=== PATIENT | female | born 1950 | race Caucasian/White ===

== ENCOUNTER → 2019-10-28 11:11 | Outpatient (BNVA) | payer MEDICARE, OTHER, SELFPAY | PROVIDERS: Family Provider Family Medicine; PCP Family Medicine; Visit Provider Nurse Practitioner | DX: S86.911A Strain of unspecified muscle(s) and tendon(s) at lower leg level, right leg, initial encounter (principal); X58.XXXA Exposure to other specified factors, initial encounter | CPT/HCPCS: 73560 ==

== ENCOUNTER 2019-11-12 09:19 | Outpatient (CLI) | payer MEDICARE, OTHER, SELFPAY ==
--- NOTE | 2019-11-12 09:25 | MR_ITS ---
WS: [id number] MRI RIGHT KNEE NONCONTRAST TECHNIQUE: Axial PD, coronal PD fat sat, coronal PD, sagittal PD, and sagittal PD fat-sat images obta ined. CLINICAL INFORMATION: RIGHT KNEE PAIN COMPARISON: None. FINDINGS: Anterior cruciate ligament is normal. Normal PCL. Distal quadriceps and patella tendons are intact. M oderate suprapatellar effusion. Hypertrophic patella. Medial and lateral collateral ligaments are int act. Small amount of edema along the lateral collateral ligament consistent with grade one injury. Moderate chondromalacia patella. No subchondral edema. Thinning of the medial and lateral meniscus. B lunting of the posterior horn lateral meniscus with complex tear extending to the articular surface a nd meniscal root. Normal popliteal fossa. MR/MR knee RT wo con* [id number] IMPRESSION: 1. Anterior and posterior cruciate ligaments are intact. 2. Blunting of the posterior horn lateral meniscus with complex tear extending to the articular surface. This extends to the meniscal root with blunting. 3. Small amount of edema involving the lateral collateral ligament consistent with grade one injury. 4. Moderate chondromalacia patella. No subchondral edema. 5. Small suprapatellar effusion. 6. Mild to moderate chondromalacia involving the medial and lateral joint comp artments.
== END 2019-11-12 09:20 | disposition home or self-care (01) ==
LOC: RADWPI 09:23
PROVIDERS: Family Provider Family Medicine; PCP Family Medicine; Visit Provider Family Medicine
DX: S83.281A Other tear of lateral meniscus, current injury, right knee, initial encounter (principal); X58.XXXA Exposure to other specified factors, initial encounter; R60.9 Edema, unspecified; M22.41 Chondromalacia patellae, right knee; M25.461 Effusion, right knee
CPT/HCPCS: 73721

== ENCOUNTER 2019-11-14 19:29 | Emergency (ER) | payer MEDICARE, OTHER, SELFPAY ==
[2019-11-14 19:34] VITALS: BP 171/78; PULSE 78; RESP 14; TEMP 36.5; O2SAT 97; BMI 37.4
--- NOTE | 2019-11-14 19:41 | W.ED.EXTPRO ---
HPI - Extremity Problem General: Chief complaint: Extremity Problem,Nontraumatic Stated complaint: finger discoloration Time Seen by Provider: 11/14/19 19:41 Source: patient Mode of arrival: ambulatory Limitations: no limitations History of Present Illness: HPI Narrative: 69-year-old female comes in today for concerns of discoloration of her left thumb pad. Patient reports this afternoon she noticed some bluish discoloration to her thumb pad. Patient attempted washing it several times but noted no change in color. Patient appears well. Patient denies any significant pain or discomfort to the thumb pad. Patient has a history of diabetes, coronary artery disease, and hypercholesteremia. Patient does take metoprolol for her blood pressure and heart disease. Patient is also on medications for her diabetes. Patient denies any pain or injury. Review of Systems General: Reports: 10 or more systems reviewed and unremarkable except in HPI and below Skin/Breast: Reports: changes in skin color PFS ED PFSH: Social History Smoking and tobacco status: never smoked Physical Exam Const: COMMON NORMALS: no acute distress and patient oriented x3 GENERAL APPEARANCE: cooperative HENMT: COMMON NORMALS: normocephalic and Normal external nose present HEAD & SCALP: normal to inspection and normocephalic NOSE: Normal external nose present MOUTH: Normal oral and palatal mucosa present THROAT: posterior oropharynx normal Eye: GENERAL EYE: appearance normal, both eyes and all related structures Neck/C-Spine: COMMON NORMALS: full ROM Lymph: LYMPHATIC: no lymphadenopathy noted Chest: COMMONS NORMALS: normal inspection of the chest Resp: COMMON NORMALS: normal respiratory effort EFFORT & INSPECTION: Yes able to speak in complete sentences Cardio: COMMON NORMALS: regular rate and regular rhythm RATE: regular rate RHYTHM: regular rhythm GI: COMMON NORMALS: non-tender Back/Pelvis: COMMON NORMALS: thoracic and lumbar spine normal to inspection Extremity: COMMON NORMALS: normal to inspection Neuro: COMMON NORMALS: patient oriented x3 and moves all extremities Psych: COMMON NORMALS: mental status grossly normal and cooperative Skin: NARRATIVE SKIN EXAM: Bluish discoloration to the thumb pad of the left hand. Normal range of motion of the finger is noted. No tenderness is noted on palpation. Capillary refill is intact to the finger. Course ED course: 2205, 69-year-old female ultrasound for arterial flow noted monophasic in the wrist and hand while triphasic all the way down to the area. Patient appears well. Patient appears no acute distress. Vital Signs: Vital signs: Vital Signs Temperature 97.7 F 11/14/19 19:34 Pulse Rate 78 11/14/19 19:34 Respiratory Rate 14 11/14/19 19:34 Blood Pressure 171/78 11/14/19 19:34 Pulse Oximetry 97 11/14/19 19:34 MDM - Extremity (Nontraumatic) MDM Narrative: Medical decision making narrative: Patient comes in with some discoloration to the left distal thumb. On exam patient has prompt capillary refill to the nail bed. Patient has good range of motion of the thumb. Minimal swelling and no pain. Differential diagnosis includes peripheral artery disease, ray nods phenomena, arterial occlusive disease. Reviewed exam with patient recommendations for further treatment and follow-up. Suspect the patient has peripheral artery disease with a small vascular partial occlusion. Ultrasound noted some triphasic to monophasic in the distal extremity. Discussed need for further treatment and evaluation cardiovascular for further intervention. Patient reports understanding of care plan and need for follow-up. Lab Data: Labs: Lab Results 11/14/19 11/14/19 11/14/19 Range/Units 20:16 20:16 20:16 WBC 8.5 (4.0-10.0) 10^3/ uL RBC 4.77 (4.1-5.3) 10^6/u L Hgb 13.3 (11.5-15.3) g/dL Hct 41.9 (37.0-47.0) % MCV 87.8 (81-99) fL MCH 27.9 L (28.0-34.0) pg MCHC 31.7 (30.0-36.0) g/dL RDW 14.0 (12.1-15.1) % Plt Count 233 (130-400) 10^3/c mm MPV 10.7 H (7.4-10.4) fL Neut % (Auto) 58.8 % Lymph % (Auto) 32.3 % [place] % (Auto) 6.4 % Eos % (Auto) 1.6 % Baso % (Auto) 0.7 % Neut # (Auto) 4.99 (1.8-7.7) 10^3/u L Lymph # (Auto) 2.7 (0.8-4.8) 10^3/u L [place] # (Auto) 0.5 (0.2-0.9) 10^3/u L Eos # (Auto) 0.1 (0.0-0.8) 10^3/u L Baso # (Auto) 0.1 (0.0-0.1) 10^3/u L Nucleated RBC % (a uto) 0 % Nucleated RBCs # 0.0 /100WBC PT 12.60 (10.5-13.3) SECO NDS INR 0.91 (0.8-1.2) APTT 26.5 (23.9-36.7) SECO NDS Sodium 136 (136-145) mmol/L Potassium 3.6 (3.5-5.1) mmol/L Chloride 95 L (98-107) mmol/L Carbon Dioxide 29 (22-29) mmol/L Anion Gap 15.6 (5-19) BUN 16 (8-23) mg/dL Creatinine 0.9 (0.5-0.9) mg/dL GFR Calculation 62.1 L (90-130) mL/min Glucose 180 H (65-115) mg/dL Calculated Osmolal ity 283 L (285-295) mOsm/k g Calcium 10.0 (8.5-10.5) mg/dL Total Bilirubin 0.3 (0.15-1.2) mg/dL AST 38 H (0-32) U/L ALT 30 (0-33) U/L Alkaline Phosphata se 76 (35-105) IU/L C-Reactive Protein 11.7 H (0.0-4.9) mg/L Total Protein 7.3 (6.6-8.7) g/dL Albumin 4.6 (3.5-5.2) g/dL Globulin 2.7 (1.3-4.6) g/dL Discharge Plan Discharge Patient Disposition: Home Clinical Impression: Peripheral artery disease Condition: Stable Prescriptions: New pentoxifylline 400 mg tablet extended release 400 mg PO BID Qty: 60 RF: 0 No Action metformin 1,000 mg tablet 1,000 mg PO BID RF: 0 Levemir FlexTouch U-100 Insuln 100 unit/mL (3 mL) insulin pen 42 unit SUBCUT BID RF: 0 spironolactone 50 mg tablet 50 mg PO DAILY RF: 0 atorvastatin 20 mg tablet 20 mg PO DAILY RF: 0 aspirin 325 mg tablet 325 mg PO DAILY RF: 0 duloxetine 60 mg capsule,delayed release(DR/EC) 60 mg PO DAILY RF: 0 metoprolol tartrate 25 mg tablet 12.5 mg PO BID RF: 0 potassium chloride 20 mEq tablet extended release 20 meq PO DAILY RF: 0 Referrals: Dayana Herrera MD [Primary Care Provider] - Coding Level of Care Code ED Obstetrics And Gynecology Professor for Chg Fwd Exam Comprehensive
[2019-11-14 20:23] LABS: Basophils # 0.1 10^3/uL (0.0-0.1); Basophils % 0.7 %; Eosinophils # 0.1 10^3/uL (0.0-0.8); Eosinophils % 1.6 %; Hematocrit 41.9 % (37.0-47.0); Hemoglobin 13.3 g/dL (11.5-15.3); Lymphocytes # 2.7 10^3/uL (0.8-4.8); Lymphocytes % 32.3 %; Mean Corpuscular HGB Conc 31.7 g/dL (30.0-36.0); Mean Corpuscular Hemoglobin 27.9 pg (28.0-34.0); Mean Corpuscular Volume 87.8 fL (81-99); Mean Platelet Volume 10.7 fL (7.4-10.4); Monocytes # 0.5 10^3/uL (0.2-0.9); Monocytes % 6.4 %; Neutrophils # 4.99 10^3/uL (1.8-7.7); Neutrophils % 58.8 %; Nucleated Red Blood Cells % 0 %; Platelet Count 233 10^3/cmm (130-400); Red Blood Count 4.77 10^6/uL (4.1-5.3); White Blood Count 8.5 10^3/uL (4.0-10.0)
[2019-11-14 20:41] LABS: Alanine Aminotransferase 30 U/L (0-33); Albumin Level 4.6 g/dL (3.5-5.2); Alkaline Phosphatase 76 IU/L (35-105); Anion Gap 15.6 (5-19); Aspartate Amino Transferase 38 U/L (0-32); Blood Urea Nitrogen 16 mg/dL (8-23); Carbon Dioxide 29 mmol/L (22-29); Chloride 95 mmol/L (98-107); Globulin 2.7 g/dL (1.3-4.6); Glomerular Filtration Rate 62.1 mL/min (90-130); Glucose 180 mg/dL (65-115); Osmolality Calculated 283 mOsm/kg (285-295); Potassium 3.6 mmol/L (3.5-5.1); Sodium 136 mmol/L (136-145); Total Bilirubin 0.3 mg/dL (0.15-1.2); Total Protein 7.3 g/dL (6.6-8.7)
--- NOTE | 2019-11-14 20:43 | USR_ITS ---
PROCEDURE INFORMATION: Exam: US Duplex Left Upper Extremity Arteries Exam date and time: 11/14/2019 9:13 PM Age: 69 years old Clinical indication: Other: Discoloration of the left thumb; Additional info: Discoloration finger. In the location of the lateral left wrist there is a collection of fluid. This area does not have any blood flow to it. Patient states she has had it drained before. TECHNIQUE: Imaging protocol: Left Real-time ultrasound scan of the arteries of the left upper extremity with 2-D mullins scale, color Doppler flow and spectral waveform analysis. COMPARISON: No relevant prior studies available. FINDINGS: Left subclavian artery: No occlusion or significant stenosis. Normal waveform. Left axillary artery: No occlusion or significant stenosis. Normal waveform. Left brachial artery: No occlusion or significant stenosis. Normal waveform. Left radial artery: No occlusion or significant stenosis. Normal waveform. Left ulnar artery: No occlusion or significant stenosis. Normal waveform. Soft tissues: There is a 1.6 x 1.0 by 1.3 cm sized cyst along the lateral aspect of the left wrist corresponding with the clinically palpable abnormality. US/[place] [id number] IMPRESSION: Small cyst. Normal arterial velocities and waveforms
[2019-11-14 20:46] LABS: INR 0.91 (0.8-1.2)
[2019-11-14 20:47] LABS: Partial Thromboplastin Time 26.5 SECONDS (23.9-36.7)
[2019-11-14 21:14] LABS: C Reactive Protein 11.7 mg/L (0.0-4.9)
[2019-11-14 23:03] VITALS: BP 125/74; PULSE 78; RESP 18; O2SAT 98
--- NOTE | 2019-11-17 09:51 | PC.SOCIAL ---
spoke with Kari at [facility] regarding referral for cardiology due to PVD. She will review and follow up with patient.
--- NOTE | 2019-11-26 10:25 | DCPLANNER ---
Patient has a follow up appointment scheduled for Sunday, December 01, 2019 at 1:[address] Ruiz at [facility]. Clinic will call patient with appointment information.
--- NOTE | 2019-12-04 14:44 | DCPLANNER ---
Patient did attend appointment scheduled for 12.01.19 with [facility].
== END 2019-11-14 23:05 | disposition home or self-care (01) ==
PROVIDERS: Emergency Provider Nurse Practitioner Family; PCP Family Medicine
DX: I73.9 Peripheral vascular disease, unspecified (principal); Z79.82 Long term (current) use of aspirin; Z79.4 Long term (current) use of insulin
CPT/HCPCS: 12345; 36415; 80053; 85025; 85610; 85730; 86140; 93931; 99281; 99283

== ENCOUNTER → 2021-11-28 15:21 | Outpatient (BNVA) | payer MEDICARE, SELFPAY | PROVIDERS: PCP Family Medicine; Visit Provider Internal Medicine Cardiovascular Disease | DX: R07.9 Chest pain, unspecified (principal); I73.9 Peripheral vascular disease, unspecified; I10 Essential (primary) hypertension; Z86.73 Personal history of transient ischemic attack (TIA), and cerebral infarction without residual deficits; I25.10 Atherosclerotic heart disease of native coronary artery without angina pectoris; R00.1 Bradycardia, unspecified; I25.2 Old myocardial infarction | CPT/HCPCS: 93005; 99214 ==

== ENCOUNTER 2022-01-11 08:15 | Outpatient (CLI) | payer MEDICARE, SELFPAY ==
--- NOTE | 2022-01-11 | ECG_ITS ---
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 Interpretive Statements NAME OF STUDY: LEXISCAN SESTAMIBI STRESS TEST INDICATION: Chest Pain PROCEDURE: At the baseline, the blood pressure was 131/64 mmHg, oxygen saturation 92% with a heart rate of 65 bpm. The electrocardiogram showed normal sinus rhythm, normal axis. Poor anterior R wave progression. Nonspecific T wave inversion in 1 aVL lead II, aVF and V6. The Lexiscan was infused over a period of 20 seconds. A total of 0.4 milligrams of Lexiscan was infused. The stress phase was continued for a total of 5 minutes. Heart rate at the end of the stress phase was 70 bpm, oxygen saturation 95% with a blood pressure of 143/62 mmHg. The EKG at the peak infusion revealed sinus rhythm with no significant ST-T wave changes. The study was terminated due to protocol completion. Sestamibi was injected 20 seconds after the Lexiscan infusion. Blood pressure at the end of the recovery phase was 137/64 mmHg, oxygen saturation 91% with a heart rate of 70 beats per minute. CONCLUSION: 1. No significant EKG changes with the LexiScan infusion. 2. No LexiScan induced chest pain or cardiac arrhythmia. 3. Normal blood pressure and heart rate response. 4. Sestamibi/sestamibi perfusion scan pending; see separate report. Electronically Signed On 01-12-2022 12:52:46 CDT by Yue Ruiz M.D. [id number]
[2022-01-11 08:26] VITALS: BMI 37.4
--- NOTE | 2022-01-11 08:41 | NMCV_ITS ---
NM clyde perf SPECT r/s* [id number] Alejandra Mckinney Age: 71 Gender: F : 1950 Exam Date: 01/11/2022 09:00 Ordering Phys: Yue Ruiz MD ([email or web address]) Technologist: RESHMA Yadav Exam Location: [facility] Indications: CHEST PAIN STRESS TEST Please see separate stress test report in [facility] for full findings IMAGE PROTOCOL Rest/Stress 1 Lexiscan Day Radiopharmaceutical Dose (mCi) Administration Site Administered by Rest: Tc-99m 10.9 IV RESHMA Jacobo Sestamibi Stress:Tc-99m 32.8 IV RESHMA Jacobo Sestamibi Rest: 11-Jan-2022 60 Discovery 630 Stress: 11-Jan-2022 30 Discovery 630 0.4mg Lexiscan. Images obtained in supine and prone position. SPECT RESULTS Technical Quality: Excellent Raw Data Analysis: Normal Image Corrections: No attenuation or motion correction applied Summed Stress Score: 1 Summed Rest Score: 1 Summed Difference Score: 1 PERFUSION FINDINGS Small sized perfusion abnormality of mild severity of mid inferior wall on rest images with improved tracer uptake on stress images. This is suggestive of attenuation artifact. FUNCTIONAL RESULTS (calculated via Gated SPECT) Stress Image LV EF (%): 77 Stress EDV (mL):83 TID: 1.02 Stress ESV (mL):19 FUNCTIONAL FINDINGS: The left ventricle is normal in size. Transient Ischemia Dilatation of 1. There is normal left ventricular systolic function. The left ventricular ejection fraction is normal with a value of 77%. There is normal left ventricular wall thickening. Normal end-diastolic and end-systolic volumes. IMPRESSIONS 1. Myocardial perfusion imaging is normal. 2. Overall left ventricular systolic function is normal without regional wall motion abnormalities, LVEF=77%. 3. No EKG changes with Lexiscan infusion. Refer to separate report for details. Yue Ruiz MD (Electronically Signed) Final Date: 13 January 2022 12:36 S
[2022-01-11] MEDS: regadenoson 0.4 Mg/5 ml Syringe IVP (10:02)
[2022-01-11 10:32] VITALS: BP 137/64; PULSE 70
== END 2022-01-11 08:16 | disposition home or self-care (01) ==
PROVIDERS: PCP Family Medicine; Visit Provider Internal Medicine Cardiovascular Disease
DX: R07.9 Chest pain, unspecified (principal)
CPT/HCPCS: 78452; 93017; A9500; J2785

== ENCOUNTER 2023-10-18 13:16 | Emergency (ER) | payer MEDICARE, SELFPAY ==
--- NOTE | 2023-10-18 13:23 | ECG_ITS ---
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 Measurements Intervals [place] Rate: 60 P: 29 GA: 170 QRS: 56 QRSD: 91 T: 55 QT: 407 QTc: 410 Interpretive Statements SINUS RHYTHM NONSPECIFIC ST & T-WAVE ABNORMALITY INTERPRETATION BASED ON A DEFAULT AGE OF 40 YEARS Compared to ECG 04/18/2017 10:08:39 Sinus bradycardia no longer present T-wave abnormality still present Electronically Signed On 10-19-2023 20:35:42 CDT by Comfort Rivero M.D. [id number]
[2023-10-18 13:28] VITALS: BP 135/74; PULSE 60; RESP 16; TEMP 36.8; O2SAT 96; BMI 35.5
--- NOTE | 2023-10-18 13:29 | XR_ITS ---
WS: [id number] Exam: XR chest 1V portable [id number] Date/Time of Exam: 10/18/2023 1:38 PM Reason For Exam: Shortness of breath Comparison 04/18/2017. Lungs are clear and fully expanded. Normal heart size. The mediastinum is normal in contour. Bony str uctures are intact. Mild DJD of both shoulders. XR/XR chest 1V portable [id number] IMPRESSION: 1. No acute cardiopulmonary finding.
[2023-10-18 13:49] LABS: Basophils # 0.1 10^3/uL (0.0-0.1); Basophils % 0.9 %; Eosinophils # 0.2 10^3/uL (0.0-0.8); Eosinophils % 2.2 %; Hematocrit 42.4 % (36-47); Lymphocytes # 2.8 10^3/uL (0.8-4.8); Lymphocytes % 31.2 %; Mean Corpuscular HGB Conc 31.6 g/dL (30-55); Mean Corpuscular Hemoglobin 27.1 pg (27-33); Mean Corpuscular Volume 85.7 fl (85-98); Mean Platelet Volume 10.7 fL (7.4-10.4); Monocytes # 0.6 10^3/uL (0.2-0.9); Neutrophils # 5.21 10^3/uL (1.8-7.7); Neutrophils % 58.5 %; Nucleated Red Blood Cells % 0 %; Platelet Count 256 10^3/cmm (157-399); Red Blood Count 4.95 10^6/uL (3.85-5.65); Red Cell Distribution Width 14.8 % (12.1-15.1); White Blood Count 8.91 10^3/uL (3.29-11.43)
[2023-10-18 14:05] LABS: Lactic Sepsis W/Reflex 3.4 mmol/L (0.5-2.2)
[2023-10-18 14:07] LABS: Troponin(5th) Baseline 12 ng/L (0-10)
[2023-10-18 14:17] LABS: Alanine Aminotransferase 20 U/L (0-33); Alkaline Phosphatase 83 U/L (35-105); Anion Gap 19.5 (5-19); Aspartate Amino Transferase 22 U/L (0-32); Blood Urea Nitrogen 16 mg/dL (8-23); C Reactive Protein 8.9 mg/L (0.0-4.9); Calcium 9.4 mg/dL (8.5-10.5); Carbon Dioxide 28 mmol/L (22-29); Chloride 95 mmol/L (98-107); Globulin 3.5 g/dL (1.3-4.6); Glucose 186 mg/dL (65-115); NT Pro B Type Natriuretic Pept 65 pg/mL (0-125); Osmolality Calculated 294 mOsm/kg (285-295); Potassium 3.5 mmol/L (3.5-5.1); Sodium 139 mmol/L (136-145); Total Bilirubin 0.4 mg/dL (0.15-1.2); Total Protein 7.5 g/dL (6.6-8.7)
[2023-10-18 14:22] LABS: Urine Color Yellow (Yellow)
[2023-10-18 14:23] LABS: Bacteria Urine 1+ /hpf; Bilirubin Urine Neg (Negative); Blood Urine Neg (Negative); Glucose Urine UA Norm (Normal); Ketones Urine Negative (Negative); Leukocyte Esterase Urine 1+ (Negative); Nitrate Urine Negative (Negative); Protein Urine Neg (Negative); Squamous Epithelial Cell Urine 0-4 /hpf (0-5); Urine Appearance Clear (CLEAR); Urobilinogen Urine Norm (Negative); pH Urine 5 (5-7)
[2023-10-18 14:24] LABS: Add Urine Culture? No
--- NOTE | 2023-10-18 14:26 | ED_ITS ---
HPI - Arrhythmia/Palpitations 2 General: Chief Complaint: Arrhythmia/Palpitations Stated Complaint: cardo referral, heart palpitations, SOB Time Seen by Provider: 10/18/23 13:27 History of Present Illness: 73-year-old female with a history of str sacha, diabetes, hypertension and coronary artery disease who presents to the emergency room with chest pressure and flutters. She has been feeling short of breath with exertion. She called her proprietary trader who told her to come to the emergency room. Said some mild nausea generalized weakness. No fevers. No cough. Review of Systems 2 Narrative: Constitutional symptoms: Negative except as documented in HPI. Skin symptoms: Negative except as documented in HPI. Eye symptoms: Negative except as documented in HPI. ENMT symptoms: Negative except as documented in HPI. Respiratory symptoms: Negative except as documented in HPI. Cardiovascular symptoms: Negative except as documented in HPI. Gastrointestinal symptoms: Negative except as documented in HPI. Genitourinary symptoms: Negative except as documented in HPI. Musculoskeletal symptoms: Negative except as documented in HPI. Neurologic symptoms: Negative except as documented in HPI. Psychiatric symptoms: Negative except as documented in HPI. Endocrine symptoms: Negative except as documented in HPI. PFSH ED 2 PFSH: Medical History CAD (coronary artery disease) CVA (cerebral vascular accident) Diabetes HTN (hypertension) Surgical History S/P coronary artery stent placement Social History Smoking and tobacco/nicotine status: never used tobacco/nicotine Physical Exam 2 Narrative: EXAM NARRATIVE: General: Alert, no acute distress. Skin: Warm, dry. Head: Normocephalic, atraumatic. Neck: Supple, trachea midline. Eye: Extraocular movements are intact. Ears, nose, mouth and throat: mucosa moist. Cardiovascular: Regular, Normal peripheral perfusion. Respiratory: Lungs are clear to auscultation, respirations are non-labored, breath sounds are equal, Symmetrical chest wall expansion. Gastrointestinal: Soft, Nontender, Non distended Musculoskeletal: Normal ROM, no deformity. Neurological: Alert and oriented, No focal neurological deficit observed. Psychiatric: Cooperative, appropriate mood & affect. Course 2 Vital Signs: Vital signs: Vital Signs Temperature 98.3 F 10/18/23 13:28 Pulse Rate 65 10/18/23 15:13 Respiratory Rate 14 10/18/23 14:35 Blood Pressure 134/63 10/18/23 15:13 Pulse Oximetry 95 10/18/23 15:13 Oxygen Delivery Me thod Room Air 10/18/23 13:28 MDM - Arrhythmia/Palpitations Medical Decision Making Medical decision making: Differential diagnosis including but not limited to and based on the above HPI, review of systems and physical exam: for patient with palpitations: atrial fibrillation with rapid ventricular response. ventricular tachycardia. sinus tachycardia. PVCs. also concern for underlying issues causing tachycardia. Infection, electrolyte abnormalities and thyroid issues Orders placed to evaluate differential diagnosis based on the above differential, HPI and physical exam EKG: Time 1323. Rate 60. Normal sinus rhythm, No ST-T changes, no ectopy, normal IL & QRS intervals, This was reviewed and interpreted by myself the ER physician at 1325 Chest x-ray: No acute process. No infiltrate. No pneumothorax. This was reviewed and interpreted by myself the ER physician. Lab Review: Laboratory results were reviewed and interpreted by myself the emergency room physician. Lab work is fairly unremarkable. No leukocytosis. No anemia. No renal failure. Urine does have 5-10 whites and 1+ bacteria so symptoms could be caused by UTI I reviewed the patient's medical record. Reexamination: Patient says she feels quite a bit better. No tachycardia and no dysrhythmias while she is been here. No altered mental status. No focal motor deficits. No increased work of breathing. Assessment and plan: Weakness Urinary tract infection Palpitations ?IV Rocephin in the emergency room. - Discharged home - Discussed findings and plan with patient. Answered any questions. - All laboratory values were reviewed and interpreted personally by myself, the ER physician - All imaging was reviewed and interpreted personally by myself, the ER physician. - Evaluation and treatment of this problem were appropriate in the emergency setting Lab Data 10/18/23 13:41 10/18/23 13:41 Radiology Impressions Chest X-Ray 10/18/23 13:29 IMPRESSION: 1. No acute cardiopulmonary finding. Laboratory Results WBC 8.91 10^3/uL (3.29-11.43) 10/18/23 13:41 RBC 4.95 10^6/uL (3.85-5.65) 10/18/23 13:41 Hgb 13.40 g/dL (11.27-16.99) 10/18/23 13:41 Hct 42.4 % (36-47) 10/18/23 13:41 MCV 85.7 fl (85-98) 10/18/23 13:41 MCH 27.1 pg (27-33) 10/18/23 13:41 MCHC 31.6 g/dL (30-55) 10/18/23 13:41 RDW 14.8 % (12.1-15.1) 10/18/23 13:41 Plt Count 256 10^3/cmm (157-399) 10/18/23 13:41 MPV 10.7 fL (7.4-10.4) H 10/18/23 13:41 Neut % (Auto) 58.5 % 10/18/23 13:41 Lymph % (Auto) 31.2 % 10/18/23 13:41 [place] % (Auto) 7.0 % 10/18/23 13:41 Eos % (Auto) 2.2 % 10/18/23 13:41 Baso % (Auto) 0.9 % 10/18/23 13:41 Neut # (Auto) 5.21 10^3/uL (1.8-7.7) 10/18/23 13:41 Lymph # (Auto) 2.8 10^3/uL (0.8-4.8) 10/18/23 13:41 [place] # (Auto) 0.6 10^3/uL (0.2-0.9) 10/18/23 13:41 Eos # (Auto) 0.2 10^3/uL (0.0-0.8) 10/18/23 13:41 Baso # (Auto) 0.1 10^3/uL (0.0-0.1) 10/18/23 13:41 Nucleated RBC % (auto) 0 % 10/18/23 13:41 Nucleated RBCs # 0.0 /100WBC 10/18/23 13:41 Sodium 139 mmol/L (136-145) 10/18/23 13:41 Potassium 3.5 mmol/L (3.5-5.1) 10/18/23 13:41 Chloride 95 mmol/L (98-107) L 10/18/23 13:41 Carbon Dioxide 28 mmol/L (22-29) 10/18/23 13:41 Anion Gap 19.5 (5-19) H 10/18/23 13:41 BUN 16 mg/dL (8-23) 10/18/23 13:41 Creatinine 0.8 mg/dL (0.5-0.9) 10/18/23 13:41 GFR Calculation Not Reportable 10/18/23 13:41 Glucose 186 mg/dL (65-115) H 10/18/23 13:41 Calculated Osmolality 294 mOsm/kg (285-295) 10/18/23 13:41 Lactic Acid 3.4 mmol/L (0.5-2.2) H 10/18/23 13:41 Calcium 9.4 mg/dL (8.5-10.5) 10/18/23 13:41 Total Bilirubin 0.4 mg/dL (0.15-1.2) 10/18/23 13:41 AST 22 U/L (0-32) 10/18/23 13:41 ALT 20 U/L (0-33) 10/18/23 13:41 Alkaline Phosphatase 83 U/L (35-105) 10/18/23 13:41 Troponin T Baseline 12 ng/L (0-10) H 10/18/23 13:41 C-Reactive Protein 8.9 mg/L (0.0-4.9) H 10/18/23 13:41 NT-Pro-B Natriuret Pep 65 pg/mL (0-125) 10/18/23 13:41 Total Protein 7.5 g/dL (6.6-8.7) 10/18/23 13:41 Albumin 4.0 g/dL (3.5-5.2) 10/18/23 13:41 Globulin 3.5 g/dL (1.3-4.6) 10/18/23 13:41 Urine Color Yellow (Yellow) 10/18/23 14:00 Urine Appearance Clear (CLEAR) 10/18/23 14:00 Urine pH 5 (5-7) 10/18/23 14:00 Ur Specific [place] 1.010 (1.005-1.030) 10/18/23 14:00 Urine Protein Neg (Negative) 10/18/23 14:00 Urine Glucose (UA) Norm (Normal) 10/18/23 14:00 Urine Ketones Negative (Negative) 10/18/23 14:00 Urine Blood Neg (Negative) 10/18/23 14:00 Urine Nitrate Negative (Negative) 10/18/23 14:00 Urine Bilirubin Neg (Negative) 10/18/23 14:00 Urine Urobilinogen Norm mg/dL (Negative) 10/18/23 14:00 Ur Leukocyte Esterase 1+ (Negative) H 10/18/23 14:00 Urine RBC None /hpf (0-2) 10/18/23 14:00 Urine WBC 5-10 /hpf (0-5) H 10/18/23 14:00 Ur Squamous Epith Cells 0-4 /hpf (0-5) H 10/18/23 14:00 Amorphous Sediment Not Reportable 10/18/23 14:00 Urine Bacteria 1+ /hpf (NONE) H 10/18/23 14:00 All radiology interpretation(s) finalized by discharge Discharge Plan Discharge Patient Disposition: Home Clinical Impression: Palpitations Urinary tract infection Qualifiers: Urinary tract infection type: acute cystitis Hematuria presence: without hematuria Qualified Code(s): N30.00 - Acute cystitis without hematuria Condition: Stable Prescriptions: New cefdinir 300 mg capsule 300 mg PO BID 7 Days Qty: 14 0RF No Action Levemir FlexTouch U100 Insulin 100 unit/mL (3 mL) insulin pen 45 unit SUBCUT BID duloxetine 60 mg capsule,delayed release(DR/EC) 60 mg PO BID potassium chloride 20 mEq tablet extended release 20 meq PO DAILY spironolacton-hydrochlorothiaz 25-25 mg tablet 1 tab PO DAILY Humulin 70/30 U-100 Insulin 100 unit/mL (70-30) suspension 22 unit SUBCUT BID Ozempic 0.25 mg or 0.5 mg(2 mg/1.5 mL) pen injector 0.5 mg SUBCUT Q7D Rx Instructions: MONDAYS nitroglycerin 0.4 mg tablet, sublingual 0.4 mg sublingual Q5M PRN (Reason: chest pain) Qty: 30 3RF Rx Instructions: do not exceed 3 doses per episode atorvastatin 20 mg tablet 20 mg PO QPM metformin 500 mg tablet extended release 24 hr 1,000 mg PO BID isosorbide mononitrate 30 mg tablet extended release 24 hr 30 mg PO QAM clopidogrel 75 mg tablet 75 mg PO DAILY ondansetron 4 mg tablet,disintegrating 4 mg PO Q6H PRN (Reason: Nausea And Vomiting) colestipol 1 gram tablet 1 g PO BID metoprolol tartrate 25 mg tablet 12.5 mg PO BID aripiprazole 2 mg tablet 2 mg PO DAILY Discharge Orders: Discharge ED (Routine); Ordered 10/18/23 Ordered By: Josselyn Pool Referrals: Dayana Herrera MD [Primary Care Provider] - Discharge Diet: Usual diet Discharge Activity: Increase activity as tolerated Patient Instructions: Urinary Tract Infection in Older Adults (ED) Activity Restrictions/Additional Instructions: Thank you for choosing [facility] for your healthcare needs today. Please realize this is an emergency room and that we are providing you with a medical screening exam and this may not be complete and all inclusive of all the testing and or work up that you may need to determine your ailment or severity of your illness. You have been screened and evaluated and felt safe for discharge. Health conditions do change or evolve sometimes and as such it is important that you follow up with your Primary Doctor to be re checked, 3-5 days is a general good time frame for follow up. You are always welcome to return to the ED for re assessment if your symptoms are worsening or you have new concerns Coding Level of Care Code ED Shrinking Machine Operator for Roddy English
[2023-10-18] MEDS: cefTRIAXone 1,000 MG in sodium chloride 0.9% (plus) 50 ML 100 MG IV (14:34)
[2023-10-18 14:35] VITALS: BP 127/46; PULSE 64; RESP 14; O2SAT 94
[2023-10-18 15:13] VITALS: BP 134/63; PULSE 65; O2SAT 95
[2023-10-18 15:33] LABS: Reflex Lactate Order REFLEX LACTIC ORDERD
[2023-10-18 15:42] VITALS: BP 134/63; PULSE 65; O2SAT 95
[2023-10-19 11:01] LABS: Bacillus cereus group Not Detected (NOT DETECT); Bacillus subtillis group Not Detected (NOT DETECT); Corynebacterium Not Detected (NOT DETECT); Cutibacterium acnes (P.acnes) Not Detected (NOT DETECT); Enterococcus Not Detected (NOT DETECT); Enterococcus faecalis Not Detected (NOT DETECT); Enterococcus faecium Not Detected (NOT DETECT); Lactobacillus species Not Detected (NOT DETECT); Listeria Not Detected (NOT DETECT); Listeria monocytogenes Not Detected (NOT DETECT); Micrococcus Not Detected (NOT DETECT); Pan Candida Not Detected (NOT DETECT); Pan Gram-Negative Not Detected (NOT DETECT); Staphylococcus epidermidis Detected (NOT DETECT); Staphylococcus lugdunensis Not Detected (NOT DETECT); Staphylococcus species Detected (NOT DETECT); Streptococcus agalactiae Not Detected (NOT DETECT); Streptococcus anginosus group Not Detected (NOT DETECT); Streptococcus pneumoniae Not Detected (NOT DETECT); Streptococcus pyogenes Not Detected (NOT DETECT); Streptococcus species Not Detected (NOT DETECT); mecA Detected (NOT DETECT); mecC Not Detected (NOT DETECT)
== END 2023-10-18 15:43 | disposition home or self-care (01) ==
PROVIDERS: Emergency Provider Emergency Medicine; PCP Family Medicine
DX: N30.00 Acute cystitis without hematuria (principal); Z79.02 Long term (current) use of antithrombotics/antiplatelets; Z79.85 Long-term (current) use of injectable non-insulin antidiabetic drugs; Z79.4 Long term (current) use of insulin; Z79.84 Long term (current) use of oral hypoglycemic drugs; I25.10 Atherosclerotic heart disease of native coronary artery without angina pectoris; Z86.73 Personal history of transient ischemic attack (TIA), and cerebral infarction without residual deficits; E11.9 Type 2 diabetes mellitus without complications; I10 Essential (primary) hypertension
CPT/HCPCS: 36415; 71045; 80053; 81001; 83605; 83880; 84484; 85025; 86140; 87040; 87077; 87150; 87186; 87205; 93005; 96365; 99285; J0696

== ENCOUNTER → 2024-09-01 11:44 | Outpatient (BNVA) | payer MEDICARE, SELFPAY | PROVIDERS: PCP Nurse Practitioner Family; Visit Provider Emergency Medicine | DX: M17.12 Unilateral primary osteoarthritis, left knee (principal); M11.262 Other chondrocalcinosis, left knee | CPT/HCPCS: 73562 ==

== ENCOUNTER → 2025-01-01 13:00 | Outpatient (BNVA) | payer MEDICARE, SELFPAY | PROVIDERS: PCP Nurse Practitioner Family; Visit Provider Orthopaedic Surgery | DX: M48.061 Spinal stenosis, lumbar region without neurogenic claudication (principal); M47.896 Other spondylosis, lumbar region; W19.XXXA Unspecified fall, initial encounter | CPT/HCPCS: 72110; 99203 ==

== ENCOUNTER 2025-01-15 08:29 | Outpatient (CLI) | payer MEDICARE, SELFPAY ==
--- NOTE | 2025-01-15 08:45 | MR_ITS ---
WS: [id number] MRI LUMBAR SPINE NONCONTRAST HISTORY: back pain, new LEFT hip pain. COMPARISON: 09/18/2012 TECHNIQUE: Sagittal and axial multisequence imaging is submitted. T12 and L2 hemangiomas. Normal lumbar alignment. No acute fracture or marrow edema. Mild disc space narrowing and desiccation at L4-5 and L5-S1. Conus terminates normally at L1-2 disc level. L1-L2: No stenosis. Mild bilateral facet joint arthritis and ligamentum flavum hypertrophy. L2-L3: Mild disc bulging with moderate ligamentum flavum and facet arthritis. Minimal narrowing of the subarticular recesses. L3-L4: Mild annular disc bulging with marked ligamentum flavum and facet arthritis. Mild central and subarticular recess narrowing. L4-L5: Diffuse disc bulging with mild osteophytic ridging. Moderate size central disc protrusion extends slightly below the disc level. There is mild contact on the traversing L5 nerve roots. Posterior laminectomy defect is present. Marked ligamentum flavum and facet joint arthritis. Mild to moderate bilateral foraminal stenosis. L5-S1: Mild osteophytic ridging with bilateral facet joint arthropathy. Moderate LEFT and mild to moderate RIGHT foraminal stenosis due to disc and osteophyte disease. Paravertebral soft tissues are negative. MR/MR lumbar spine wo con* [id number] IMPRESSION: 1. Moderate size central disc protrusion at L4-5 is decreased in size since . Disc protrusion extends into the subarticular recesses contacting the traversing L5 nerve roots. There is a posterior laminectomy defect. Mild to mod erate bilateral foraminal stenosis due to facet joint arthropathy, disc and ost eophytosis. 2. Moderate LEFT and mild to moderate RIGHT foraminal stenosis at L5-S1 due to disc and osteophyte disease. 3. Mild central and bilateral subarticular recess narrowing at L3-4. 4. Facet joint arthritis is most significant from L3-4 through L5-S1.
== END 2025-01-15 08:30 | disposition home or self-care (01) ==
LOC: RAD 08:30
PROVIDERS: PCP Nurse Practitioner Family; Visit Provider Orthopaedic Surgery
DX: M48.061 Spinal stenosis, lumbar region without neurogenic claudication (principal)
CPT/HCPCS: 72148

== ENCOUNTER → 2025-02-03 13:52 | Outpatient (BNVA) | payer MEDICARE, SELFPAY | PROVIDERS: PCP Nurse Practitioner Family; Visit Provider Orthopaedic Surgery | DX: Z01.818 Encounter for other preprocedural examination (principal); M48.062 Spinal stenosis, lumbar region with neurogenic claudication; E10.65 Type 1 diabetes mellitus with hyperglycemia | CPT/HCPCS: 36415; 80053; 81001; 83036; 85025; 99214 ==

== ENCOUNTER 2025-02-24 07:18 | Outpatient (CLI) | payer MEDICARE, SELFPAY ==
--- NOTE | 2025-02-24 | ECG_ITS ---
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 Interpretive Statements Lung unchanged pre/post procedure; Intraprocedure shortess of breath; Symptoms resoled by discharge PROCEDURE: At the baseline, the EKG revealed sinus bradycardia with a poor R wave progression. Diffuse nonspecific ST-T changes.. The baseline heart was 58 bpm with a blood pressue of 130/67 mm of Hg Lexiscan was infused over a period of 20 seconds. A total of 0.4 milligrams of Lexiscan was infused. The stress phase was continued for a total of 5 minutes. Heart rate at the end of the stress phase was 67 bpm with a blood pressure 129/61 mm of Hg. The EKG at the peak infusion revealed no significant changes. Sestamibi was injected 20 seconds after the Lexiscan infusion. Heart rate at the end of the recovery phase was 66 bpm with a blood pressure of 133/51 mm of Hg. CONCLUSION: 1. No significant EKG changes with the LexiScan infusion 2. No LexiScan induced chest pain or cardiac arrhythmia 3. Normal blood pressure and heart rate response 4. Sestamibi/sestamibi perfusion scan pending; see separate report. Electronically Signed On 02-27-2025 20:34:32 [employer] by Comfort Rivero M.D. [email or web address]
--- NOTE | 2025-02-24 07:40 | NMCV_ITS ---
NM clyde perf SPECT r/s* [id number] Alejandra Mckinney Age: 75 Gender: F : 1950 Exam Date: 02/24/2025 08:26 Ordering Phys: Praveen Angulo MD Technologist: RESHMA Peñaloza Exam Location: [facility] Indications: cp STRESS TEST Please see separate stress test report [facility] for full findings IMAGE PROTOCOL Rest/Stress 1 Lexiscan Day Radiopharmaceutical Dose (mCi) Administration Site Administered by Rest: Tc-99m 10.6 IV Keri Tang, PODIATRIC AIDE Sestamibi Stress:Tc-99m 32.9 IV Keri Garciagle, PODIATRIC AIDE Sestamibi Rest: 24-Feb-2025 60 Discovery 630 Stress: 24-Feb-2025 30 Discovery 630 0.4mg Lexiscan. Supine position only as patient was unable to lay prone. Patient unable to do prone and is waiting for back surgery. SPECT RESULTS Technical Quality: Good Raw Data Analysis: Normal Image Corrections: No attenuation or motion correction applied Summed Stress Score: 2 Summed Rest Score: 0 Summed Difference Score: 2 PERFUSION FINDINGS Small area of slightly decreased tracer uptake was noted in the mid and apical inferior wall region. Reversibility was noted in this area. FUNCTIONAL RESULTS (calculated via Gated SPECT) Stress Image LV EF (%): 66 Stress EDV (mL):113 TID: 1.03 Stress ESV (mL):38 FUNCTIONAL FINDINGS: Segmental wall motion analysis revealing no gross wall motion abnormalities IMPRESSIONS 1. Myocardial perfusion imaging revealing small area of slight reversibility involving the mid and apical anterior wall region, suggesting ischemia in the distribution of the right coronary artery. 2. Normal LV ejection fraction 66%. 3. LV wall motion analysis revealing no gross wall motion abnormalities. 4. Normal LV volume Compared to the study from 01/11/2022 there is slight increase in the ischemic burden Dr Comfort Rivero MD [facility] (Electronically Signed) Final Date: 24 February 2025 15:40 S
[2025-02-24 07:41] VITALS: BMI 35.8
[2025-02-24 09:19] VITALS: BP 133/51; PULSE 66
== END 2025-02-24 07:19 | disposition home or self-care (01) ==
LOC: CDL 07:21
PROVIDERS: PCP Nurse Practitioner Family; Visit Provider Family Medicine
DX: R07.9 Chest pain, unspecified (principal); R93.1 Abnormal findings on diagnostic imaging of heart and coronary circulation
CPT/HCPCS: 36415; 78452; 93017; 96374; A9500; J2785

== ENCOUNTER → 2025-03-05 09:44 | Outpatient (BNVA) | payer MEDICARE, SELFPAY | PROVIDERS: PCP Nurse Practitioner Family; Referring Provider Nurse Practitioner Family; Visit Provider Internal Medicine Cardiovascular Disease | DX: Z01.810 Encounter for preprocedural cardiovascular examination (principal); I25.10 Atherosclerotic heart disease of native coronary artery without angina pectoris; I10 Essential (primary) hypertension; I95.1 Orthostatic hypotension; E11.9 Type 2 diabetes mellitus without complications; Z79.4 Long term (current) use of insulin; Z95.5 Presence of coronary angioplasty implant and graft; Z86.73 Personal history of transient ischemic attack (TIA), and cerebral infarction without residual deficits; Z79.02 Long term (current) use of antithrombotics/antiplatelets; Z87.891 Personal history of nicotine dependence; R94.39 Abnormal result of other cardiovascular function study; R07.9 Chest pain, unspecified; R58 Hemorrhage, not elsewhere classified | CPT/HCPCS: 36415; 80048; 85025; 85610; 99204 ==

== ENCOUNTER 2025-03-13 08:57 | Outpatient (CLI) | payer MEDICARE, SELFPAY ==
[2025-03-13] VITALS (15 sets, daily range): BP systolic 117–151; BP diastolic 46–73; PULSE 54–61; RESP 12–19; TEMP 36.9; O2SAT 90–95; BMI 35.8
--- NOTE | 2025-03-13 10:22 | P.HPUD_ITS ---
Surgery/Procedure H&P Update DATE OF PROCEDURE: March 13, 2025 DATE H&P PERFORMED: 03/05/25 H&P UPDATE INFORMATION: I have reviewed H&P completed within last 30 days, I have examined patient prior to procedure and No changes to prior documentation PREOP DIAGNOSIS: Chest pain/ abnormal stress test PRIMARY INDICATION FOR PROCEDURE: Chest pain/ abnormal stress test PLANNED PROCEDURE: Operation Date: 03/13/25 10:00 Proposed Procedures p Cardiac Catheterization - [facility] w/wo LV & coros(Left) - El Mosquera M.D Possible percutaneous coronary intervention PATIENT REASSESSED PRIOR TO SEDATION, WITH NO CHANGE NOTED: Yes PHYSICAL EXAM: alert, oriented x 3, clear to auscultation bilaterally and regular rate & rhythm AIRWAY EVAL/ANESTHESIA PLAN: normal airway, ASA III, Local Anesthesia, Risks, benefits & alternatives of sedation and/or procedure discussed and Patient agrees to continue as planned ADDITIONAL INFORMATION: Moderate sedation
--- NOTE | 2025-03-13 10:59 | PM.PROC ---
Procedure Note: Date of procedure: 03/13/25 Pre-procedure diagnosis: Chest pain/abnormal stress test Post-procedure diagnosis: other Procedure: Patent coronary arteries. Patent proximal RCA stents Medical therapy Performing Provider: El Mosquera Complications: None Condition: stable Disposition: same day Coding Level of Care Code Acute Code for Roddy English
--- NOTE | 2025-03-13 13:24 | XACV_ITS ---
Exam Room: 2 Ht: 168 cm Wt: 101 kg BSA: 2.21 m2 Gender: Female : 1950 Any Known Allergies: No known allergies Exam Priority: Routine Procedure(s): Procedure Description: Diagnostic procedure Diagnostic Cath Status: Elective Diagnostic Findings * No significant disease noted in the Left Main, Left Anterior Descending, or Circumflex coronary arteries. Proximal RCA has patent prior stent with mild 20% in-stent restenosis.. * Coronary angiography shows right dominance. Conclusions 1. No significant disease noted in the Left Main, Left Anterior Descending, or Circumflex coronary arteries. Proximal RCA has patent prior stent with mild 20% in-stent restenosis.. 2. Normal left ventricular systolic function. Ejection fraction of 60%. Recommendations * Aggressive risk factor modification. * Outpatient cardiology follow up in 2 weeks. Interventional RX Recommendation: medical therapy and/or counseling Diagnostic RX Recommendation: medical therapy and/or counseling Anticoagulation: Heparin Ventriculography Ejection Fraction: 60.0 % Pressures Phase:Rest AO : 112 / 59 ( 83 ) @ 10:45:00 AM 142 / 53 ( 87 ) @ 10:52:00 AM 143 / 53 ( 87 ) @ 10:52:00 AM LV : 144 / -4 / 22 @ 10:51:00 AM 151 / -4 / 23 @ 10:52:00 AM 149 / -5 / 23 @ 10:52:00 AM Valves Phase:DefaultPhase AV : 4.0 @ 10:56:41 AM AV Mean Gradient: 13.0 @ 10:56:41 AM Clinical Evaluation EBL: 5mL-10mL Procedural Details Hemodynamic formulas in Rest were re-calculated based on hemoglobin value from 04/23/2024 12:00:00 AM. Procedure Consent Obtained. Current Diagnosis : Chest Pain. Pre-Procedure Time Out. Identified patient by full name and date of as verbalized by the patient/guarantor. Does the consent match the physician's order: Yes. Accurate & Complete Informed Consent: Yes. Inpatient/Outpatient History & Physical on Chart: Yes. If H&P is completed, is and addenduem needed: No; If yes, is the addendum complete: N/A. Visualize and Verify Site with Patient/Guarantor: N/A. Relevant Radiology Images available: Yes. Pre-op teaching completed and patient verbalized understanding. The risks, benefits, and alternatives of sedation and/or procedure were discussed by physician. The patient agrees to continue. Procedure started. [facility] Clinical Fraility Score: 3: Managing Well. Airveyor Operator Indications: Worsening Angina. Chest Pain Symptom Assessment: Typical Angina Symptoms. Correct patient, site and procedure confirmed by cath team. Current diagnosis: Chest Pain. PERRLA. Strong, equal hand blocker heated metal forms bilaterally. Lungs clear x 5 lobes. IV Site on Arrival: 20 gauge in the left anticubital. IV Fluids: 0.9% NaCl at KVO. 0 mL infused prior to stucco laborer. Pre Procedural Pulses: bilateral dorsalis pedis was 3+. Pre Procedural Pulses: bilateral posterior tibial was 3+. Pre Procedural Pulses: bilateral radial was 3+. Oxygen started at 2liters/min via nasal canula. right groin was prepped with chloroprep then draped in the usual sterile fashion. right radial was prepped with chloroprep then draped in the usual sterile fashion. Baseline sample Acquired. HR: 0 BPM. Physician arrived. Physician scrubbed in. Immediate Pre-Procedure Time Out. Correct Patient: Yes; Correct Procedure: Yes; Correct Site: Yes; Correct Patient Position: Yes; Correct Supplies: Yes; Dried Flammable Prep: Yes; Blood Products Available: N/A;. Lidocaine 1% infiltrated to the right radial. Arterial access obtained. A 5 djiboutian TIG catheter in over wire. Multiple views taken of left coronary artery. Catheter redirected to the RCA. Multiple views taken of right coronary artery. Catheter removed over the exchange wire. A 5 djiboutian Angled Pig catheter in over wire. EDP Sample taken: LV 144/-5,22; HR: 66 BPM; SpO2: 94%. LV gram performed in HODGES @ 10 mL/second for a total of 30 mL. EDP Sample taken: LV 151/-5,23; HR: 68 BPM; SpO2: 95%. Pullback taken: LV 149/-6,23; AO 142/53(87); Mean: 13mmHg, Peak to Peak: 4mmHg, SEP: 19sec/min; HR: 66 BPM; SpO2: 94%. Catheter removed over the exchange wire. A TR Band was successful obtaining hemostatsis at the Right Radial artery insertion site. Vital chart was stopped. Post Procedure: Pulses reassessed and unchanged. PERRLA. Strong, equal hand blocker heated metal forms bilaterally. No VTE prophylaxis required. Medication's Wasted: Lidocaine 1% = 18 mL. Medication's Wasted: Nitro = 49.8 mcg. Medication's Wasted: Heparin = 1000 units. Medication's Wasted: Other = Fentanyl 50 mcg. Total IV fluids: 25 mL. Post-op diagnosis: Non-obstructive CAD. Complications: None. Estimated blood loss: 5mL-10mL. Responsiveness - Normal response to verbal stimuli; alert and oriented, PERRLA. Airway - Unaffected, no intervention required; spontaneous ventilation. Circulation: W/N/L, pulses unchanged. Nausea/Vomiting: No. Procedure completed. Patient transferred by wheelchair to CPRU. Access Site Site: Right Radial artery Sheath Size: 6 Fr Hemostasis Method: TR Band Hemostasis Success: Successful Procedure Medications Start: 10:40 AM Stop: 10:40 AM Medication: Versed Amount: 1 mg Route: I.V. Start: 10:38 AM Stop: 10:38 AM Medication: Fentanyl Amount: 50 mcg Route: I.V. Start: 10:41 AM Stop: 10:41 AM Medication: Nitrogylcerin Amount: 200 mcg Route: I.A. Start: 10:38 AM Stop: 10:38 AM Medication: Versed Amount: 1 mg Route: I.V. Start: 10:43 AM Stop: 10:43 AM Medication: Fentanyl Amount: 25 mcg Route: I.V. Start: 10:43 AM Stop: 10:43 AM Medication: Heparin Amount: 5000 units Route: I.V. I, the attending physician, have reviewed and verified all procedure medications. Yes, all medications given per verbal order History/Risk Factors Hypertension: Yes Dyslipidemia: Yes Peripheral Arterial Disease (PAD): No Myocardial Infarction (NV): No Obesity: No Renal Disease: No Tobacco Use: Former Prior Interventions PCI: No CABG: No Valve Surgery: No Report Signatures Finalized by El Mosquera MD on 03/18/2025 09:10 AM
--- NOTE | 2025-03-13 13:30 | PC.NURSE ---
TR band Removal note Started releasing air from TR band at 1200. 1-3ml air released from band every 5-15minutes. Band deflated at 1415. Radial pulse present. No hematoma or bleeding noted. Observed to have red speckled petechiae like pattern on back of right hand since TR band had been in place. Amanda Mccracken MATERIAL ENGINEER notified and come to room for assessment. Pulses palpable and patient has sensation in right hand. Nurse practitioner had gone over reportable signs and symptoms and when seek care or notify provider. Pt and spouse verbalized understanding. Site was dressed with large bandaid.
== END 2025-03-13 14:27 | disposition home or self-care (01) ==
PROVIDERS: PCP Nurse Practitioner Family; Visit Provider Internal Medicine
DX: I25.118 Atherosclerotic heart disease of native coronary artery with other forms of angina pectoris (principal); Z95.5 Presence of coronary angioplasty implant and graft; I10 Essential (primary) hypertension; E78.5 Hyperlipidemia, unspecified; Z87.891 Personal history of nicotine dependence; Z79.02 Long term (current) use of antithrombotics/antiplatelets; E11.9 Type 2 diabetes mellitus without complications; Z86.73 Personal history of transient ischemic attack (TIA), and cerebral infarction without residual deficits; Z79.4 Long term (current) use of insulin
CPT/HCPCS: 36415; 93458; 99152; 99153; C1769; C1887; C1894; J1644; J2250; J3010; J3490; J7030; J9999; Q0163; Q9967

== ENCOUNTER 2025-03-23 07:41 | Day surgery (SDC) | payer MEDICARE, SELFPAY ==
[2025-03-23] VITALS (11 sets, daily range): BP systolic 132–163; BP diastolic 52–72; PULSE 50–79; RESP 13–20; TEMP 36–36.9; O2SAT 92–99; BMI 33.9
--- NOTE | 2025-03-23 09:06 | W.PM.OPSFHP ---
Same Day Surgery H&P Indication for Procedure/HPI DATE OF PROCEDURE: March 23, 2025 CHIEF COMPLAINT/INDICATIONFOR SURGICAL PROCEDURE: Back and leg pain PREOP DIAGNOSIS: Lumbar stenosis with neurogenic claudication PLANNED PROCEDURE: Operation Date: 03/23/25 09:10 Proposed Procedures p Lumbar Decompression(Not Applicable) - Froilan Chambers, DO Medications/Allergies* Home Medications ?Medication ?Instructions ?Recorded ?Confirmed ?Type duloxetine 60 mg capsule,delayed 60 mg PO BID 10/28/19 03/23/25 History release insulin human U-100 NPH-regulr 22 unit SUBCUT BID 11/28/21 03/23/25 History 70-30 mix 100 unit/mL subcutaneous susp (Humulin 70/30 U-100 Insulin) spironolactone 25 1 tab PO DAILY 11/28/21 03/23/25 History mg-hydrochlorothiazide 25 mg tablet aripiprazole 2 mg tablet 2 mg PO DAILY 10/18/23 03/23/25 History atorvastatin 20 mg tablet 20 mg PO QPM 10/18/23 03/23/25 History clopidogrel 75 mg tablet 75 mg PO DAILY 10/18/23 03/18/25 History isosorbide mononitrate 30 mg 60 mg PO QAM 02/18/25 03/23/25 History tablet,extended release 24 hr valsartan 80 mg tablet 40 mg PO DAILY 02/18/25 03/23/25 History insulin degludec 100 unit/mL (3 35 unit SUBCUT BID 03/13/25 03/23/25 History mL) subcutaneous pen (Tresiba FlexTouch U-100 insulin) Allergies/Adverse Reactions Allergy/AdvReac Type Severity Reaction Status Date / Time No Known Allergies Allergy Verified 03/18/25 09:55 Current Medications: Generic Name Dose Route Start Last Admin Trade Name Freq PRN Reason Stop Dose Admin Sodium Chloride 1,000 mls @ 30 mls/hr 03/23/25 08:00 03/23/25 08:38 Sodium Chloride 0.9% IV 03/24/25 07:59 30 mls/hr .Q24H JERMAINE Administration Pertinent History/Comorbid Conditions* Medical History (Updated 03/05/25 @ 11:33 by Jamie Peña MD) CVA (cerebral vascular accident) Diabetes HTN (hypertension) CAD (coronary artery disease) Surgical History (Updated 11/13/25 @ 11:33 by Jamie Peña MD) S/P coronary artery stent placement Social History Smoking and tobacco/nicotine status: former use of tobacco/nicotine Pertinent Exam Findings alert, oriented x 3 and procedure specific exam findings Recommendations Risks and benefits of procedure reviewed Surgery/Procedure today Coding Level of Care Code Acute Code for Chg Fwvaleria
--- NOTE | 2025-03-23 09:32 | ANES.PREANE2 ---
Pre-Anesthetic Assessment Height/Weight: Height 1.68 m Weight 95.254 kg Temp Pulse Resp BP Pulse Ox O2 Del Method 96.8 F L 50 L 16 146/63 95 Room Air 03/23/25 08:05 03/23/25 08:05 03/23/25 08:05 03/23/25 08:05 03/23/25 08:05 03/23/25 08:05 Preop Diagnosis: Lumbar stenosis with neurogenic claudication Operation Date: 03/23/25 09:10 Proposed Procedures p Lumbar Decompression(Not Applicable) - Froilan Chambers DO Familial anesthetic complications: None Was Beta Serge taken within 24 hours: N/A Was Clonidine taken within 24 hours: N/A Last intake: Intake Last Liquid Date 03/22/25 Last Liquid Time 18:00 Last Solid Date 03/22/25 Last Solid Time 18:00 Social No alcohol and No tobacco Exam alert, oriented x 3, clear to auscultation bilaterally and regular rate & rhythm Airway Mallampati: Class III Dentition: false CV/HEM Coronary Artery Disease and Hypertension Metabolic Diabetes Mellitus and Morbid Obesity Neuropsych Cerebrovascular Accident Anesthetic Plan ASA status: 3 Anesthesia: General Risk of > 500 ml blood loss (7ml/kg in children): No Medications/Allergies Home Medications ?Medication ?Instructions ?Recorded ?Confirmed ?Last Taken ?Type duloxetine 60 mg capsule,delayed 60 mg PO BID 10/28/19 03/23/25 03/22/25 History release insulin human U-100 NPH-regulr 22 unit SUBCUT BID 11/28/21 03/23/25 03/22/25 History 70-30 mix 100 unit/mL subcutaneous susp (Humulin 70/30 U-100 Insulin) spironolactone 25 1 tab PO DAILY 11/28/21 03/23/25 03/22/25 History mg-hydrochlorothiazide 25 mg tablet aripiprazole 2 mg tablet 2 mg PO DAILY 10/18/23 03/23/25 03/22/25 History atorvastatin 20 mg tablet 20 mg PO QPM 10/18/23 03/23/25 03/22/25 History clopidogrel 75 mg tablet 75 mg PO DAILY 10/18/23 03/18/25 03/17/25 History isosorbide mononitrate 30 mg 60 mg PO QAM 02/18/25 03/23/25 03/22/25 History tablet,extended release 24 hr valsartan 80 mg tablet 40 mg PO DAILY 02/18/25 03/23/25 03/22/25 History nitroglycerin 0.4 mg sublingual 0.4 mg sublingual Q5M PRN chest 03/05/25 03/18/25 03/11/25 Rx tablet pain #30 tabs insulin degludec 100 unit/mL (3 35 unit SUBCUT BID 03/13/25 03/23/25 03/22/25 History mL) subcutaneous pen (Tresiba FlexTouch U-100 insulin) Allergies Allergy/AdvReac Type Severity Reaction Status Date / Time No Known Allergies Allergy Verified 03/18/25 09:55 Current Medications Generic Name Dose Route Start Last Admin Trade Name Freq PRN Reason Stop Dose Admin Sodium Chloride 1,000 mls @ 30 mls/hr 03/23/25 08:00 03/23/25 08:38 Sodium Chloride 0.9% IV 03/24/25 07:59 30 mls/hr .Q24H JERMAINE Administration PFSH Anesthesia Medical History CVA (cerebral vascular accident) Diabetes HTN (hypertension) CAD (coronary artery disease) Surgical History S/P coronary artery stent placement Social History Smoking and tobacco/nicotine status: former use of tobacco/nicotine Data Anesthesia Cardiac Studies: Sestamibi Stress Test (Cardiology) 02/24/25
[2025-03-23] MEDS: ceFAZolin 2,000 mg SDV 2000 MG IVP (10:08)
[2025-03-23] MEDS: lidocaine-epi 1% 20 mL INJ INJECTION (10:28)
--- NOTE | 2025-03-23 11:07 | PM.OP ---
Operative Report Date of procedure: March 23, 2025 Pre-op diagnosis: Lumbar stenosis neurogenic claudication Post-op diagnosis: same Procedure done: Revision L4-5 laminectomy with partial facetectomy Surgeon: Froilan Chambers DO Estimated blood loss (mL): 5 Procedure: Revision L4-5 laminectomy with partial facetectomy Patient is brought to the operative suite. After undergoing anesthesia they are placed in the prone position. All areas of impingement are well padded. Patient is then prepped and draped in the normal sterile fashion. A skin incision is made over the L4/5 level. This is confirmed under c-arm guidance. A series of dilators are passed and the tubular retractor is docked on the L 4 lamina. A bovie is used to clear the soft tissue off the lamina and the L 4/5 facet joint. A high speed tyesha is then used to perform the laminectomy and take down the medial aspect of the L 4/5 facet joint. A kerrison rongeure was then used to take down the remaining lamina and smooth the edge of the laminectomy up to the point where the ligamentum flavum attaches. Attention was then brought to the medial aspect of the facet joint. The remaining medial aspect of the superior and inferior aspect of the facet joint were taken down with the kerrison from the pedicle of L4 to L 5. The facet joint had significant hypertrophy. Attention was then brought to the Ligamentum Flavum. The ligament was taken down from the lamina of L4 to L5 and out medially to the remaining facet joint. The ligament was thick. The dura was then exposed. The dura was in good repair. The L4 nerve was then traced with a curette out the L4/5 foramen and found to be adequately decompressed. The L5 nerve was traced with a curette around the L5 pedicle. The lateral recess was opened with a kerrison helping to further decompress the L5 nerve. Wound is then irrigated copiously with saline and surgiflo is used to stop any bleeding. The tubular retractor is removed and the wound is closed with vicryl and monocryl suture. Steri strips were applied. A sterile dressing is then placed. Patient was then placed in the supine position and transferred to the PACU in stable condition.
--- NOTE | 2025-03-23 12:30 | ANE.PACU2 ---
Inpatient post-anesthesia follow up: Airway intact: Yes Vital signs: Temperature 97.0 F Pulse Rate 58 Respiratory Rate 16 Blood Pressure 132/58 Pulse Oximetry 97 Oxygen Delivery Me thod Room Air Oxygen Flow Rate 10 Fraction of Inspir ed Oxygen Hydration adequate: Yes Nausea and vomiting: No Pain level: 1 Mental status: Baseline
--- NOTE | 2025-03-23 15:52 | XR_ITS ---
WS: [id number] Exam: XR lumbar spine 2-3V* [id number] Date/Time of Exam: 03/23/2025 3:52 PM Reason For Exam: Revision L4-5 laminectomy with partial facetectomy DLP: AP C-arm image of the lower lumbar spine is submitted. The image was obtained for preop localization purposes.
== END 2025-03-23 12:30 | disposition home or self-care (01) ==
PROVIDERS: PCP Nurse Practitioner Family; Visit Provider Orthopaedic Surgery
PROC: 0QB00ZX Excision of Lumbar Vertebra, Open Approach, Diagnostic (ICD-10-PCS; CPT 63017; principal; 2025-03-23 09:10)
DX: M48.062 Spinal stenosis, lumbar region with neurogenic claudication (principal); I25.10 Atherosclerotic heart disease of native coronary artery without angina pectoris; I10 Essential (primary) hypertension; E11.9 Type 2 diabetes mellitus without complications; E66.01 Morbid (severe) obesity due to excess calories; Z68.33 Body mass index [BMI] 33.0-33.9, adult; Z86.73 Personal history of transient ischemic attack (TIA), and cerebral infarction without residual deficits; Z79.4 Long term (current) use of insulin; Z79.02 Long term (current) use of antithrombotics/antiplatelets; Z95.5 Presence of coronary angioplasty implant and graft; Z87.891 Personal history of nicotine dependence
CPT/HCPCS: 63047; 36416; 72100; 76000; 82962; A4649; J0690; J1100; J2405; J2704; J3010; J3490; J7030; J9999

== ENCOUNTER → 2025-04-07 10:46 | Outpatient (BNVA) | payer MEDICARE, SELFPAY | PROVIDERS: PCP Nurse Practitioner Family; Visit Provider Orthopaedic Surgery | DX: Z98.890 Other specified postprocedural states (principal) | CPT/HCPCS: 99024 ==